=== PATIENT | male | born 1975 | race Caucasian/White ===

== ENCOUNTER → 2021-01-19 | Outpatient (CLI) | payer BC ==
[2021-01-19 23:36] LABS: Basophils # (A) 0.08 X 10*3/uL (0.00-0.10); Eosinophils % (A) 1.2 %; HCT 43.8 % (39.6-50.0); HGB 14.1 g/dL (13.0-17.0); Lymphocytes # (A) 1.35 X 10*3/uL (0.90-5.00); Lymphocytes % (A) 16.7 %; MCH 30.2 pg (27.0-32.0); MCHC 32.2 g/dL (32.0-37.0); MCV 93.8 fL (80.0-97.0); Mean Platelet Volume 10.7 fL (9.5-12.2); Monocytes # (A) 0.59 X 10*3/uL (0.20-1.00); Monocytes % (A) 7.3 %; Neutrophils # (A) 5.91 X 10*3/uL (1.80-7.70); Neutrophils % (A) 73.3 %; Platelet Count 211 X 10*3/uL (140-440); RBC 4.67 X 10*6/uL (4.40-5.60); RDW 12.7 % (11.5-14.5); WBC 8.07 X 10*3/uL (4.50-10.00)
[2021-01-20 07:16] LABS: African American GFR (CKD) 118.3 (60.0-200.0); Albumin 4.7 g/dL (3.80-4.90); Albumin/Globulin Ratio 2.24 (1.60-3.17); Anion Gap 15.4 mmol/L (4.00-12.00); BUN/Creat Ratio 16.67 Ratio (12.00-20.00); Calcium 9.7 mg/dL (8.7-10.3); Carbon Dioxide 21.6 mmol/L (21.6-31.8); Globulin 2.1 g/dL (1.6-3.3); Non-African American GFR(CKD) 102.1 (60.0-200.0); Potassium 4.3 mmol/L (3.5-5.5); Total Bilirubin 0.6 mg/dL (0.2-1.2); Total Protein 6.8 g/dL (6.2-8.2)
== END | disposition home or self-care (01) ==
LOC: LABWHC1 14:58
PROVIDERS: ATTEND Internal Medicine
DX: C20 Malignant neoplasm of rectum (principal)
CPT/HCPCS: 36415; 80053; 82378; 85025

== ENCOUNTER → 2021-01-22 | Outpatient (CLI) | payer BC ==
--- NOTE | 2021-01-24 08:27 | CT ---
EXAMINATION TYPE: CT ChestAbdPelvis wo/w con DATE OF EXAM: 01/22/2021 COMPARISON: None. HISTORY: Rectal CA, initial staging CT DLP: 1581.9 mGycm. Automated Exposure Control for Dose Reduction was Utilized. CONTRAST: CT scan of the thorax, abdomen and pelvis is performed with oral and without and with IV Contrast, pa tient injected with 100 mL of Isovue 300. FINDINGS: LUNGS: The lungs are grossly clear, there is no concerning parenchymal mass or nodule identified. T here is no pleural effusion or pneumothorax seen. The tracheobronchial tree is patent. MEDIASTINUM: There are no greater than 1 cm hilar or mediastinal lymph nodes. No cardiomegaly or pe ricardial effusion is seen. OTHER: Small degree of flame-shaped gynecomastia bilaterally is noted.. LIVER/GB: No significant abnormality is appreciated. PANCREAS: No significant abnormality is seen. SPLEEN: No significant abnormality is seen. ADRENALS: No significant abnormality is seen. KIDNEYS: Noncontrast images show no renal calculi bilaterally. Postcontrast images show symmetric cor tical medullary uptake and excretion without concerning solid or cystic renal mass or hydronephrosis seen bilaterally. Retroaortic left renal vein which is normal variant is incidentally noted. BOWEL: The oral contrast does not reach the level of the terminal ileum making evaluation of distal b owel slightly suboptimal. In addition patient has very little intra-abdominal fat making bowel evalua tion suboptimal. Suspicious masslike thickening to the left aspect of rectum axial image 124 series 4 likely reflects known neoplasm. No suspicious small or large bowel dilatation proximal to this. GENITAL ORGANS: No gross abnormality seen. LYMPH NODES: Suspicious heterogeneous oval 2.1 x 1.5 cm mass image 108 series 6 that does not appear to directly connect to any small bowel loop. This is approximately 8 cm inferior to the aortic bifurc ation and correlates with series 13 image 44. No additional abnormal greater than 1 cm lymph nodes id entified. OSSEOUS STRUCTURES: Mild disc space narrowing lumbosacral junction. Mild facet arthropathy lower lumb ar levels. Mild to moderate narrowing and spurring in both hip joints. No suspicious focal osseous le edison. OTHER: No significant additional abnormality is seen. IMPRESSION: Suspected CT visualization of known rectal neoplasm. There is suspicious central 2.1 x 1. 5 cm pelvic lesion worrisome for peritoneal involvement and/or abnormal adenopathy as detailed above. No distal metastatic disease.
== END | disposition home or self-care (01) ==
LOC: RADCTMAIN 15:02
PROVIDERS: ATTEND Internal Medicine
DX: C20 Malignant neoplasm of rectum (principal)
CPT/HCPCS: 71270; 74178; Q9967

== ENCOUNTER → 2021-01-29 | Outpatient (CLI) | payer BC ==
--- NOTE | 2021-01-31 10:32 | PE ---
Nuclear medicine PET/CT HISTORY: Colorectal carcinoma, initial Patient received 12.4 mCi F-18 FDG intravenously in delayed scanning was performed from the skull bas e to the mid thighs. Localization and attenuation correction CT scan was performed. Correlation to CT scan 01/22/2021 Chest and neck: There is no cervical or supraclavicular adenopathy. No mediastinal, axillary, hilar a denopathy. No pleural pericardial effusion. There is no evident lung mass. No suspicious uptake. ABDOMEN: There is no evident liver mass. No retroperitoneal adenopathy. Retroaortic left renal vein n oted incidentally. At the level of the rectum there is some abnormal wall thickening. There is associ ated hypermetabolic uptake. Some uptake is present within the sigmoid colon additionally, some suspec logan associated colonic wall thickening. There is no evident pelvic adenopathy. No ascites. Lymph node present within the pelvis to the left of midline adjacent to the hypermetabolic uptake measures only approximately 1 cm transverse dimension, no definite associated uptake. Additionally the previously described soft tissue mass within the pelvis on axial image #228 is redemonstrated, no definite assoc iated hypermetabolic uptake however. Osseous structures show no suspicious uptake IMPRESSION: Findings compatible with patient's history of colorectal carcinoma, 2 discrete foci of hy permetabolic uptake is described, probable associated adenopathy without associated uptake.
== END | disposition home or self-care (01) ==
LOC: RADPETMAIN 12:46
PROVIDERS: ATTEND Internal Medicine Hematology & Oncology
DX: C19 Malignant neoplasm of rectosigmoid junction (principal)
CPT/HCPCS: 78815; A9552

== ENCOUNTER → 2022-07-11 | Outpatient (CLI) | payer BC ==
[2022-07-11 13:09] VITALS: BP 120/73; PULSE 73; RESP 16; TEMP 98
== END | disposition home or self-care (01) ==
LOC: PROCWHC3 13:02
DX: C20 Malignant neoplasm of rectum (principal)
CPT/HCPCS: 96523; J1642

== ENCOUNTER → 2022-07-29 | Outpatient (CLI) | payer BC ==
[~2022-07-29] MED LIST: SODIUM CHLORIDE 0.9% 500 ML 500 ML in EMPTY BAG 1 BAG IV PRN
[2022-07-29 09:32] VITALS: RESP 16
[2022-07-29 09:35] LABS: Basophils % (A) 1 %; Eosinophils # (A) 0.1 k/uL (0-0.7); Eosinophils % (A) 2 %; HCT 40.6 % (39.0-53.0); HGB 14.3 gm/dL (13.0-17.5); Lymphocytes # (A) 0.7 k/uL (1.0-4.8); Lymphocytes % (A) 22 %; MCH 32.1 pg (25.0-35.0); MCHC 35.1 g/dL (31.0-37.0); MCV 91.5 fL (80.0-100.0); Mean Platelet Volume 8.7; Monocytes # (A) 0.3 k/uL (0-1.0); Monocytes % (A) 8 %; Neutrophils # (A) 1.9 k/uL (1.3-7.7); Neutrophils % (A) 63 %; Platelet Count 149 k/uL (150-450); RBC 4.44 m/uL (4.30-5.90)
[2022-07-29 09:44] LABS: ALT 26 U/L (4-49); AST 30 U/L (17-59); African American GFR (CKD) >90 (>60 ml/min/1.73 sqM); Albumin 4.4 g/dL (3.5-5.0); Alkaline Phosphatase 53 U/L (38-126); Anion Gap 9 mmol/L; Blood Urea Nitrogen 15 mg/dL (9-20); Calcium 9.1 mg/dL (8.4-10.2); Carbon Dioxide 28 mmol/L (22-30); Chloride 101 mmol/L (98-107); Glucose 86 mg/dL (74-99); Magnesium 1.8 mg/dL (1.6-2.3); Non-African American GFR(CKD) >90 (>60 ml/min/1.73 sqM); Potassium 4.3 mmol/L (3.5-5.1); Sodium 138 mmol/L (137-145); Total Bilirubin 0.8 mg/dL (0.2-1.3); Total Protein 6.9 g/dL (6.3-8.2)
[2022-07-29 10:01] LABS: T4, Free (Free Thyroxine) 0.95 ng/dL (0.78-2.19)
[2022-07-29 16:40] LABS: % Iron Saturation 27.24 (15.00-50.00); Chol/HDL Ratio 2.21 Ratio; Ferritin 63.6 ng/mL (22.0-322.0); Iron 119 ug/dL (65-175); LDL Cholesterol,Calculated 74.5 mg/dL (0.0-131.0); Total Iron Binding Capacity 437 ug/dL (228-460); VLDL Calculation 11.88 mg/dL (5.00-40.00)
== END | disposition home or self-care (01) ==
LOC: PROCWHC3 08:29
PROVIDERS: ATTEND Family Medicine
DX: Z00.00 Encounter for general adult medical examination without abnormal findings (principal); C20 Malignant neoplasm of rectum; R63.4 Abnormal weight loss; K91.2 Postsurgical malabsorption, not elsewhere classified
CPT/HCPCS: 84439; 84481; 80061; 80053; 84443; 82607; 82728; 82746; 83540; 83550; 83735; 84590; 84630; 85025; 86376; 82306; 84482; 36591; J1642

== ENCOUNTER → 2022-09-13 | Outpatient (CLI) | payer BC ==
[2022-09-13 11:17] VITALS: BP 134/81; PULSE 76; RESP 16; TEMP 98.2
== END ==
LOC: PROCWHC3 10:53
PROVIDERS: ATTEND Internal Medicine Hematology & Oncology
DX: Z00.00 Encounter for general adult medical examination without abnormal findings (principal)
CPT/HCPCS: 96523; J1642

== ENCOUNTER → 2023-01-12 | Outpatient (CLI) | payer BC ==
[2023-01-12 13:11] VITALS: BP 124/79; PULSE 63; RESP 16; TEMP 97.7
== END ==
LOC: PROCWHC3 12:54
PROVIDERS: ATTEND Internal Medicine Hematology & Oncology
DX: C20 Malignant neoplasm of rectum (principal)
CPT/HCPCS: 96523; J1642

== ENCOUNTER → 2023-03-22 | Outpatient (CLI) | payer BC ==
[2023-03-22 13:39] VITALS: BP 128/90; PULSE 65; RESP 16; TEMP 98.1
== END ==
LOC: PROCWHC3 13:22
PROVIDERS: ATTEND Internal Medicine Hematology & Oncology
DX: Z45.2 Encounter for adjustment and management of vascular access device (principal); C20 Malignant neoplasm of rectum
CPT/HCPCS: 96523; J1642

== ENCOUNTER → 2024-03-20 | Outpatient (CLI) | payer BC ==
[2024-03-20 21:24] LABS: Gliadin AB IgA, Deaminated Negative (Negative); Gliadin AB IgA, Unit <0.5 U/mL; Gliadin AB IgG, Deaminated Negative (Negative); Gliadin AB IgG, Unit <0.4 U/mL
== END | disposition home or self-care (01) ==
LOC: LABWHC1 11:22
PROVIDERS: ATTEND Internal Medicine
DX: C20 Malignant neoplasm of rectum (principal); R19.7 Diarrhea, unspecified; R14.0 Abdominal distension (gaseous); Z90.49 Acquired absence of other specified parts of digestive tract
CPT/HCPCS: 36415; 83516

== ENCOUNTER → 2024-08-05 | Outpatient (CLI) | payer BC ==
--- NOTE | 2024-08-05 10:12 | XR ---
EXAMINATION TYPE: XR abdomen 1V DATE OF EXAM: 08/05/2024 Comparison: None Clinical History: 49-year-old male epigastric pain Findings: Pelvic phleboliths. Stable alignment midline pelvis from prior bowel resection and reanastomosis. Mil d to moderate stool in the right side of the abdomen. No dilated small bowel loops. Lung bases are cl ear. Mild degenerative change of both hips. Impression: No evidence for free air or bowel obstruction. Previous distal colon surgery. [id number] stool in the right side of the abdomen. [facility], , 08/05/2024 10:10 AM
== END | disposition home or self-care (01) ==
LOC: RADXRMAIN 09:14
PROVIDERS: ATTEND Internal Medicine
CPT/HCPCS: 74018

== ENCOUNTER → 2024-08-05 | Outpatient (CLI) | payer BC ==
[2024-08-05 16:17] LABS: ALT 25 U/L (10-49); AST 30 U/L (14-35); Albumin 4.5 g/dL (3.8-4.9); Alkaline Phosphatase 64 U/L (41-126); Blood Urea Nitrogen 16.2 mg/dL (9.0-27.0); Calcium 9.5 mg/dL (8.7-10.3); Carbon Dioxide 26.1 mmol/L (21.6-31.8); Chloride 104 mmol/L (96-109); Globulin 2.5 g/dL (1.6-3.3); Glucose 90 mg/dL (70-110); Lipase 22 U/L (14-60); Potassium 4.5 mmol/L (3.5-5.5); Sodium 141 mmol/L (135-145); Total Bilirubin 0.6 mg/dL (0.3-1.2)
== END | disposition home or self-care (01) ==
LOC: LABWHC1 08:43
PROVIDERS: ATTEND Internal Medicine
DX: R10.13 Epigastric pain (principal)
CPT/HCPCS: 36415; 80053; 83690

== ENCOUNTER → 2024-08-23 | Outpatient (CLI) | payer BC ==
--- NOTE | 2024-08-25 21:09 | US ---
EXAMINATION TYPE: US abdomen complete DATE OF EXAM: 08/23/2024 COMPARISON: NONE CLINICAL INDICATION: Male, 49 years old with history of R10.13 ABD PAIN; TECHNIQUE: Grayscale and color Doppler imaging of the abdomen was performed. FINDINGS: EXAM MEASUREMENTS: Liver Length: 15.3 cm Gallbladder Wall: 0.2 cm CBD: 0.4 cm, color Doppler imaging was utilized to isolate the common bile duct for measurement. Spleen: 12.9 cm Right Kidney: 12.0x4.0x6.6 cm Left Kidney: 12.2x4.9x5.5 cm Pancreas: wnl Liver: increased echogenicity Gallbladder: wnl Evidence for sonographic Person's sign: No CBD: wnl Spleen: wnl Right Kidney: No hydronephrosis or masses seen Left Kidney: No hydronephrosis or masses seen Upper IVC: wnl Abd Aorta: wnl IMPRESSION: 1 unremarkable abdomen ultrasound [facility], , 08/25/2024 9:07 PM
== END | disposition home or self-care (01) ==
LOC: RADUSWWP 07:32
PROVIDERS: ATTEND Internal Medicine
DX: R10.13 Epigastric pain (principal)
CPT/HCPCS: 76700